=== PATIENT | male | born 1950 | race Caucasian/White ===

== ENCOUNTER 2017-12-02 12:05 | Emergency (ER) | payer MEDICARE, BC ==
[2017-12-02 13:17] LABS: ANION GAP 10.2 mmol/L (5-15); CHLORIDE,CL 106 mmol/L (98-115); SODIUM,NA 139 mmol/L (136-145)
--- NOTE | 2017-12-02 13:18 | EDM.PDOC ---
ED HPI GENERAL MEDICAL PROBLEM - General Chief Complaint: General Stated Complaint: STIFF/SORE NECK Time Seen by Provider: 12/02/17 12:41 Source of Information: Reports: Patient History Limitations: Reports: No Limitations - History of Present Illness INITIAL COMMENTS - FREE TEXT/NARRATIVE: Patient presents with a stiff neck. He also had a temp of 100.2 last night and is now 99.4. He tells me that the stiffness and soreness started in his right shoulder to neck 5 days ago then moved to his left shoulder and for the past 2- 3 days has been in the neck and left shoulder. It is usually worsened by sleeping at night and the neck seems to be fixed in one position or another depending on sleeping position. The neck pain was first in the right trapezius and shoulder and is now very tight and sore in left trapezius. No midline pain. He has had this a few times before but not quite this painful. He hasn' t used muscle relaxants but sometimes takes a Lorazepam. 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 Posterior Neck Pain Score (Numeric/FACES): 6 - Related Data Allergies Allergy/AdvReac Type Severity Reaction Status Date / Time shellfish derived Allergy Mild Nausea and Verified 07/31/13 17:44 Vomiting Home Meds: Home Meds LORazepam [Ativan] 0.5 mg PO DAILY PRN 07/31/13 [History] Pramipexole [Mirapex] 1 mg PO BEDTIME 07/31/13 [History] Hydrocodone/Acetaminophen [Hydrocodon-Acetaminophen 5-325] 2 each PO Q4H [History] Past Medical History - Past Health History Medical/Surgical History: Denies Medical/Surgical History Social & Family History - Living Situation & Occupation Living situation: Reports: ED ROS GENERAL - Review of Systems Review Of Systems: See Below Constitutional: Reports: Fever. Denies: Malaise, Weakness HEENT: Denies: Ear Discharge, Ear Pain, Throat Pain, Vision Change Respiratory: Denies: Shortness of Breath, Cough Cardiovascular: Denies: Chest Pain, Syncope GI/Abdominal: Denies: Abdominal Pain, Diarrhea, Vomiting : Denies: Dysuria, Flank Pain Musculoskeletal: Reports: Neck Pain, Shoulder Pain. Denies: Arm Pain, Back Pain , Hand Pain, Leg Pain, Foot Pain Skin: Denies: Cyanosis, Jaundice, Mottled, Pallor, Diaphoresis Neurological: Denies: Confusion, Dizziness, Headache, Seizure, Syncope, Trouble Speaking, Difficulty Walking, Weakness Psychiatric: Denies: Agitation, Anxiety, Confusion ED EXAM, GENERAL - Physical Exam Exam: See Below Exam Limited By: No Limitations General Appearance: Alert, WD/WN, No Apparent Distress Eye Exam: Bilateral Eye: EOMI, Normal Inspection, PERRL Ears: Normal External Exam, Normal Canal, Hearing Grossly Normal, Normal TMs Nose: Normal Inspection, No Blood Throat/Mouth: Normal Inspection, Normal Lips, Normal Voice, No Airway Compromise Head: Atraumatic, Normocephalic Neck: Limited Range of Motion, Tender Lateral (trapezius, left), Other (Painful with any ROM but especially up; he can't get chin close to chest but can rotate slowly to 45 degrees right and left). No: Tender Midline Respiratory/Chest: No Respiratory Distress, Lungs Clear, Normal Breath Sounds, No Accessory Muscle Use Cardiovascular: Regular Rate, Rhythm, No Murmur GI/Abdominal: Normal Bowel Sounds, Soft, Non-Tender, No Distention Back Exam: Normal Inspection, Full Range of Motion. No: CVA Tenderness (L), CVA Tenderness (R) Extremities: Normal Inspection, Normal Range of Motion, Non-Tender, No Pedal Edema Neurological: Alert, Oriented, Normal Cognition, No Motor/Sensory Deficits Psychiatric: Normal Affect, Normal Mood Skin Exam: Warm, Dry, Intact, Normal Color, No Rash Course - Vital Signs Last Recorded V/S: Last Vital Signs Temp 99.4 F 12/02/17 12:24 Pulse 103 H 12/02/17 12:24 Resp 18 12/02/17 12:24 BP 123/73 12/02/17 12:24 Pulse Ox 95 12/02/17 12:24 - Orders/Labs/Meds Labs: Laboratory Tests 12/02/17 12/02/17 Range/Units 12:35 12:35 WBC 10.58 H (5.00-10.00) 10^3/uL RBC 4.87 (4.50-6.00) 10^6/uL Hgb 15.4 (13.0-17.0) g/dL Hct 45.8 (40.0-52.0) % MCV 94.0 H D (82.0-92.0) fL MCH 31.6 H (27.0-31.0) pg MCHC 33.6 (32.0-36.0) g/dL RDW 13.0 (11.5-14.5) % Plt Count 236 (150-400) 10^3/uL MPV 10.5 H (7.4-10.4) fL Immature Gran % (Auto) 0.3 (0.0-5.0) % Neut % (Auto) 73.0 H (50.0-70.0) % Lymph % (Auto) 13.8 L (20.0-40.0) % Bradley % (Auto) 11.9 H (2.0-8.0) % Eos % (Auto) 0.9 L (1.0-3.0) % Baso % (Auto) 0.1 (0.0-1.0) % Immature Gran # (Auto) 0.03 (0.00-0.50) 10^3/uL Neut # (Auto) 7.72 H (2.50-7.00) 10^3/uL Lymph # (Auto) 1.46 (1.00-4.00) 10^3/uL Bradley # (Auto) 1.26 H (0.10-0.80) 10^3/uL Eos # (Auto) 0.10 (0.10-0.30) 10^3/uL Baso # (Auto) 0.01 (0.00-0.10) 10^3/uL Sodium 139 (136-145) mmol/L Potassium 4.7 (3.3-5.3) mmol/L Chloride 106 (98-115) mmol/L Carbon Dioxide 27.5 (21.0-32.0) mmol/L Anion Gap 10.2 (5-15) mmol/L BUN 29 H (6-25) mg/dL Creatinine 0.89 (0.51-1.17) mg/dL Est Cr Clr Drug Dosing 80.54 mL/min Estimated GFR (MDRD) > 60 mL/min Glucose 97 mg/dL Calcium 8.7 (8.7-10.3) mg/dL Total Bilirubin 0.4 (0.2-1.0) mg/dL AST 24 (15-37) U/L ALT 33 (12-78) U/L Alkaline Phosphatase 65 (46-116) IU/L C-Reactive Protein 7.5 H (0.0-0.9) mg/dL Total Protein 7.4 (6.4-8.2) g/dL Albumin 3.13 (3.00-4.80) g/dL - Re-Assessments/Exams Free Text/Narrative Re-Assessment/Exam: 12/02/17 14:16 Discussed findings and options with patient and his . I feel this is most likely musculoskeletal but can't be sure without a spinal tap as he has mildly elevated WBC and CRP of 7.5. Patient would like to find out for sure today. Since a lumbar puncture here would be a send out for results, I talked with a doctor at [facility] who assured me that they would have results right away if he goes there. Patient wants to do this so I called transfer line to arrange transfer there for tap and treatment if indicated. Am waiting for call back with details of transfer. Patient is stable without change. No headache, altered mental status or malaise. Departure - Departure Time of Disposition: 14:20 Disposition: DC/Tfer to Acute Hospital 02 Condition: Good Clinical Impression: Stiff neck, Neutrophilic leukocytosis, Elevated C-reactive protein (CRP) Fever Qualifiers: Encounter type: initial encounter - Discharge Information Referrals: Staci Carlisle MD [Primary Care Provider] - Forms: ED Department Discharge Additional Instructions: 1. Go to [place] as discussed. Dr. Bansal is expecting to see you there.
== END 2017-12-02 14:30 ==
LOC: KA.ED 12:05
DX: M43.6 Torticollis (principal); R50.9 Fever, unspecified; D72.828 Other elevated white blood cell count; R79.82 Elevated C-reactive protein (CRP); Z91.013 Allergy to seafood
CPT/HCPCS: 36415; 80053; 85025; 86140; 99284

== ENCOUNTER 2023-01-12 08:55 | Emergency (ER) | payer MEDICARE, BC | END 2023-01-12 10:05 | disposition home or self-care (01) | LOC: KA.ED 08:55 | DX: R03.0 Elevated blood-pressure reading, without diagnosis of hypertension (principal); Z91.013 Allergy to seafood; Z79.899 Other long term (current) drug therapy | CPT/HCPCS: 93005; 93010; 99284 ==